=== PATIENT | female | born 1975 | race Caucasian/White ===

== ENCOUNTER 2016-10-27 13:09 | Inpatient (IN) | payer MEDICAID ==
[2016-10-27] MEDS ORDERED: Oxycodone/Acetaminophen 5/325 mg Tab PO STA (13:51)
[2016-10-27] MEDS ORDERED: HYDROmorphone 1 mg/ml ISec IVP STA (14:42)
--- NOTE | 2016-10-27 14:50 | ED PDOC ---
Arrival/HPI - General Chief Complaint: Back Pain Time Seen by Provider: 10/27/16 13:39 Historian: Patient - History of Present Illness Narrative History of Present Illness (Text): 10/27/16 15:04 41 year old female presents to the emergency department with bilateral lower back pain after lifting something yesterday. Denies fall. Denies other complaints. PMD: Dr. Stringer Time/Duration: 24 hours Symptom Onset: Sudden Symptom Course: Unchanged Activities at Onset: Light Context: Home Past Medical History - Provider Review Nursing Documentation Reviewed: Yes - Infectious Disease Hx of Infectious Diseases: None - Tetanus Immunization Tetanus Immunization: Unknown - Past Medical History Past Medical History: No Previous - Cardiac Hx Cardiac Disorders: No - Pulmonary Hx Asthma: Yes ("sometimes after smelling perfume") - Neurological Hx Neurological Disorder: Yes Hx Dizziness: Yes - HEENT Hx HEENT Disorder: No - Renal Hx Renal Disorder: No - Endocrine/Metabolic Hx Endocrine Disorders: No - Hematological/Oncological Hx Blood Disorders: No - Integumentary Hx Dermatological Disorder: No - Musculoskeletal/Rheumatological Hx Falls: No - Gastrointestinal Hx Gastrointestinal Disorders: Yes (chronic constipation) - Genitourinary/Gynecological Hx Genitourinary Disorders: No - Psychiatric Hx Psychophysiologic Disorder: No Hx Substance Use: No - Surgical History Hx Section: Yes (x2) - Anesthesia Hx Anesthesia: Yes Hx Anesthesia Reactions: No Hx Malignant Hyperthermia: No - Suicidal Assessment Feels Threatened In Home Enviroment: No Family/Social History - Physician Review Nursing Documentation Reviewed: Yes Family/Social History: Unknown Family HX Smoking Status: Never Smoked Hx Alcohol Use: No Hx Substance Use: No Hx Substance Use Treatment: No Allergies/Home Meds Allergies/Adverse Reactions: Allergies aspirin Allergy (Verified 10/27/16 13:30) SWELLING Review of Systems - Physician Review All systems were reviewed & negative as marked: Yes - Review of Systems Constitutional: absent: Fevers Musculoskeletal: Back Pain (No midline tenderness) Neurological: absent: Headache, Dizziness Physical Exam Vital Signs Reviewed: Yes Vital Signs Temp Pulse Resp BP Pulse Ox 10/27/16 18:34 66 18 122/71 99 10/27/16 16:46 68 18 124/69 99 10/27/16 15:40 70 19 126/73 99 10/27/16 15:24 75 18 123/69 98 10/27/16 13:30 98.3 F 87 16 127/70 98 Temperature: Afebrile Blood Pressure: Normal Pulse: Regular Respiratory Rate: Normal Appearance: Positive for: Well-Appearing, Non-Toxic, Comfortable Pain Distress: None Mental Status: Positive for: Alert and Oriented X 3 - Systems Exam Head: Present: Atraumatic, Normocephalic Pupils: Present: PERRL Extroacular Muscles: Present: EOMI Conjunctiva: Present: Normal Mouth: Present: Moist Mucous Membranes Neck: Present: Normal Range of Motion Respiratory/Chest: Present: Clear to Auscultation, Good Air Exchange. No: Respiratory Distress, Accessory Muscle Use Cardiovascular: Present: Regular Rate and Rhythm, Normal S1, S2. No: Murmurs Abdomen: Present: Normal Bowel Sounds. No: Tenderness, Distention, Peritoneal Signs Back: Present: Paraspinal Tenderness. No: Midline Tenderness Upper Extremity: Present: Normal Inspection. No: Cyanosis, Edema Lower Extremity: Present: Normal Inspection. No: Edema Neurological: Present: GCS=15, CN II-XII Intact, Speech Normal Skin: Present: Warm, Dry, Normal Color. No: Rashes Psychiatric: Present: Alert, Oriented x 3, Normal Insight, Normal Concentration Medical Decision Making ED Course and Treatment: Impression: A 41 year old female complains of back pain. Differential Diagnosis included but are not limited to: msk pain suspected. no clincal concern for cord compression. Plan: -- CT Spine w/o Contrast -- Labs -- Flexeril, morphine, oxycodone -- Reassess and disposition Prior Visits: Notes and results from previous visits were reviewed. Patient was last seen in the Emergency department on 06/29/16 for right ear pain and was discharged home. Progress Notes: 10/27/16 13:55 Patient's records reviewed on [facility], which show no opiate prescriptions. 10/27/16 14:25 Patient states she feels better after medications and requests discharge home. 10/27/16 12:43 Upon being discharged, patient attempted to ambulate but was unable to. pt helped to floor by family member after attempting ambulation. pt tearful in er. Additional pain medication ordered, labs imaging ordered 10/27/16 17:21 labs unremakrable. no e/o fo cauda equina/cord compression clinically. ct shows degenerative changes. pt again requesting to be d/c. attempted to again ambulate. pt unable to ambulate again, unsteady gait, discussed with dr stringer. requests hospitalist admission for intractable back pain 10/27/16 18:00 10/27/16 18:15 - Lab Interpretations Lab Results: 10/28/16 07:00 10/28/16 08:00 Lab Results 10/28/16 08:00: Sodium 140, Potassium 3.8, Chloride 105, Carbon Dioxide 27, Anion Gap 12, BUN 9, Creatinine 0.6, Est GFR ( Amer) > 60, Est GFR (Non- Af Amer) > 60, Random Glucose 85, Calcium 8.8, Total Bilirubin 0.3, AST 46 H, ALT 59 H, Alkaline Phosphatase 85, Total Protein 7.0, Albumin 3.5, Globulin 3.5 , Albumin/Globulin Ratio 1.0 L 10/28/16 07:00: WBC 6.9, RBC 3.92, Hgb 11.5 L, Hct 36.3, MCV 92.6, MCH 29.3, MCHC 31.7, RDW 13.6, Plt Count 304, MPV 9.1, Gran % 44.8 L, Lymph % (Auto) 44.7 H, [place] % (Auto) 7.5 H, Eos % (Auto) 2.6, Baso % (Auto) 0.4, Gran # 3.11, Lymph # 3.1, [place] # 0.5, Eos # 0.2, Baso # 0.03 10/27/16 15:12: Urine Color Straw, Urine Appearance Clear, Urine pH 6.0, Ur Specific [place] <= 1.005, Urine Protein Negative, Urine Glucose (UA) Negative, Urine Ketones Negative, Urine Blood Trace-intact H, Urine Nitrate Negative, Urine Bilirubin Negative, Urine Urobilinogen 0.2, Ur Leukocyte Esterase Negative , Urine RBC 0 - 2, Urine WBC Negative, Ur Epithelial Cells 0 - 2, Urine Bacteria Neg 10/27/16 15:12: Sodium 140, Potassium 4.0, Chloride 107, Carbon Dioxide 25, Anion Gap 12, BUN 8, Creatinine 0.7, Est GFR ( Amer) > 60, Est GFR (Non- Af Amer) > 60, Random Glucose 87, Calcium 9.3, Total Bilirubin 0.3, AST 38, ALT 61 H, Alkaline Phosphatase 95, Total Protein 7.4, Albumin 3.9, Globulin 3.5, Albumin/Globulin Ratio 1.1 10/27/16 15:12: PT 11.6, INR 1.07, APTT 28.9 10/27/16 15:12: WBC 7.4, RBC 3.83, Hgb 11.4 L, Hct 35.2 L, MCV 91.9, MCH 29.8, MCHC 32.4, RDW 13.5, Plt Count 302, MPV 8.9, Gran % 50.9, Lymph % (Auto) 40.1 H , [place] % (Auto) 6.5 H, Eos % (Auto) 1.7, Baso % (Auto) 0.8, Gran # 3.79, Lymph # 3.0, [place] # 0.5, Eos # 0.1, Baso # 0.06 - RAD Interpretation Radiology Orders: 10/27/16 14:42 LUMBAR SPINE W/O CONTRAST [CT] Stat 10/29/16 19:02 SPINAL CANAL LUMBAR W/O CONT [MRI] Routine - Medication Orders Current Medication Orders: Albuterol Sulfate (Albuterol 0.083% Inhal Dominique (2.5 Mg/3 Ml) Ud) 2.5 mg IH Q2H PRN PRN Reason: Shortness of Breath Cyclobenzaprine HCl (Flexeril) 10 mg PO Q8H PRN PRN Reason: Muscle spasm Last Admin: 10/29/16 10:21 Dose: 10 mg Dexamethasone (Decadron Inj) 4 mg IVP Q8 REPLACED BY [facility] Last Admin: 10/30/16 06:19 Dose: 4 mg Docusate Sodium (Colace) 100 mg PO DAILY REPLACED BY [facility] Last Admin: 10/29/16 10:23 Dose: 100 mg Famotidine (Pepcid) 20 mg PO BID REPLACED BY [facility] Last Admin: 10/29/16 10:21 Dose: 20 mg Ketorolac Tromethamine (Toradol) 15 mg IVP Q8H PRN PRN Reason: Pain, Mild (1-3) Last Admin: 10/27/16 21:37 Dose: 15 mg Re-Assess: KAYLEE Pain Assessment Document 10/27/16 22:37 B.P (Rec: 10/28/16 02:16 B.P [id number]) Pain Reassessment Is this a pain reassessment? Yes Sleep Is patient sleeping during reassessment? Yes Lidocaine (Lidoderm) 1 ea TD DAILY CAS Lorazepam (Ativan) 1 mg IVP ONCE PRN; Protocol PRN Reason: Anxiety Oxycodone HCl (Oxycodone Immediate Release Tab) 5 mg PO Q4H PRN PRN Reason: Pain, severe (8-10) Last Admin: 10/29/16 03:39 Dose: 5 mg Polyethylene Glycol (Miralax) 17 gm PO DAILY CAS Last Admin: 10/29/16 10:23 Dose: 17 gm Discontinued Medications Cyclobenzaprine HCl (Flexeril) 10 mg PO STAT STA Stop: 10/27/16 13:52 Last Admin: 10/27/16 14:12 Dose: 10 mg Docusate Sodium (Colace) Confirm Administered Dose 100 mg .ROUTE .STK-MED ONE Stop: 10/29/16 10:24 Home Med (*Refrigerator Open) Confirm Administered Dose 1 unit XX .STK-MED ONE Stop: 10/28/16 05:55 Home Med (*Refrigerator Open) Confirm Administered Dose 1 unit XX .STK-MED ONE Stop: 10/29/16 06:00 Home Med (*Refrigerator Open) Confirm Administered Dose 1 unit XX .STK-MED ONE Stop: 10/29/16 11:31 Ketorolac Tromethamine (Toradol) 30 mg IVP STAT STA Stop: 10/27/16 18:39 Morphine Sulfate (Morphine) 4 mg IVP STAT STA Stop: 10/27/16 15:09 Last Admin: 10/27/16 15:43 Dose: 4 mg Oxycodone/Acetaminophen (Percocet 5/325 Mg Tab) 1 tab PO STAT STA Stop: 10/27/16 13:52 Last Admin: 10/27/16 14:11 Dose: 1 tab Polyethylene Glycol (Miralax) Confirm Administered Dose 17 gm .ROUTE .STK-MED ONE Stop: 10/29/16 10:24 - Scribe Statement The provider has reviewed the documentation as recorded by the Siva Henderson training under Luís Palacios Provider Scribe Attestation: All medical record entries made by the Scribe were at my direction and personally dictated by me. I have reviewed the chart and agree that the record accurately reflects my personal performance of the history, physical exam, medical decision making, and the department course for this patient. I have also personally directed, reviewed, and agree with the discharge instructions and disposition. Disposition/Present on Arrival - Present on Arrival Any Indicators Present on Arrival: No History of DVT/PE: No History of Uncontrolled Diabetes: No Urinary Catheter: No History of Decub. Ulcer: No History Surgical Site Infection Following: None - Disposition Have Diagnosis and Disposition been Completed?: Yes Diagnosis: Back pain Disposition: HOSPITALIZED Disposition Time: 17:23 Patient Problems: Current Active Problems Problem Status Onset Back pain Acute Condition: STABLE
[2016-10-27] MEDS ORDERED: Morphine 4 mg/ml ISec IVP STA (15:08)
[2016-10-27 15:23] LABS: ADD MANUAL DIFF? NO
[2016-10-27 15:27] LABS: URINE BILIRUBIN NEGATIVE (NEGATIVE); URINE BLOOD TRACE-INTACT (NEGATIVE); URINE GLUCOSE (UA) NEGATIVE (NEGATIVE); URINE KETONE NEGATIVE (NEGATIVE); URINE LEUKOCYTE ESTERASE NEGATIVE Leu/uL (NEGATIVE); URINE PROTEIN NEGATIVE mg/dL (<30 mg/dL); URINE UROBILINOGEN 0.2 E.U./dL (<1 E.U./dL)
[2016-10-27 15:29] LABS: URINE APPEARANCE CLEAR (CLEAR); URINE COLOR STRAW (YELLOW)
[2016-10-27 15:35] LABS: URINE BACTERIA NEG (NEG); URINE EPITHELIAL CELLS 0 - 2 /hpf (0-5); URINE RBC 0 - 2 /hpf (0-2); URINE WBC NEGATIVE /hpf (0-6)
[2016-10-27 15:39] LABS: BASO # 0.06 K/mm3 (0.0-2.0); BASO % 0.8 % (0.0-3.0); EOS # 0.1 (0.0-0.7); EOS % 1.7 % (1.5-5.0); GRAN # 3.79 (1.4-6.5); GRAN % 50.9 % (50.0-68.0); HEMATOCRIT 35.2 % (36.0-48.0); LYMPH % 40.1 % (22.0-35.0); MEAN CELL VOLUME 91.9 fL (80.0-105.0); MEAN CORPUSCULAR HEMOGLOBIN 29.8 pg (25.0-35.0); MEAN CORPUSCULAR HGB CONC 32.4 g/dl (31.0-37.0); MEAN PLATELET VOLUME 8.9 fl (7.0-11.0); MONO # 0.5 (0.1-0.6); MONO % 6.5 % (1.0-6.0); PLATELET COUNT 302 10^3/uL (120.0-450.0); RED CELL DISTRIBUTION WIDTH 13.5 % (11.5-14.5); WHITE BLOOD COUNT 7.4 10^3/ul (4.5-11.0)
[2016-10-27 15:40] LABS: INR 1.07 (0.93-1.08); PARTIAL THROMBOPLASTIN TIME 28.9 Seconds (23.7-30.8)
[2016-10-27 15:42] LABS: ALB/GLOB RATIO 1.1 (1.1-1.8); ALKALINE PHOSPHATASE 95 U/L (38-133); ALT/SGPT 61 U/L (7-56); AST/SGOT 38 U/L (15-39); BILIRUBIN,TOTAL 0.3 mg/dL (0.2-1.3); BLOOD UREA NITROGEN 8 mg/dL (7-21); CALCIUM 9.3 mg/dL (8.4-10.5); CARBON DIOXIDE 25 mmol/L (21-33); CHLORIDE 107 mmol/L (98-107); GFR AFRICAN-AMERICAN > 60; GLUCOSE,RANDOM 87 mg/dL (70-110); SODIUM 140 mmol/L (132-148); TOTAL PROTEIN 7.4 g/dL (5.8-8.3)
--- NOTE | 2016-10-27 16:36 | CT ---
PROCEDURE: CT Lumbar Spine without contrast HISTORY: Low back pain COMPARISON: None. TECHNIQUE: Axial computed tomography images were obtained of the lumbar spine without the use of intravenous contrast. Coronal and sagittal reformatted images were created and reviewed. Radiation dose: Total exam DLP = 547.48 mGy-cm. This CT exam was performed using one or more of the following dose reduction techniques: Automated exposure control, adjustment of the mA and/or kV according to patient size, and/or use of iterative reconstruction technique. FINDINGS: VERTEBRAE: There is normal alignment of the lumbar vertebral bodies. Lumbar lordosis is maintained. Vertebral bodies are normal in height. There is no acute fracture, spondylolysis or spondylolisthesis. Bone mineralization is normal. Please note evaluation of the conus medullaris and nerve roots of cauda equina is limited on noncontrast CT examination. The spinal canal is grossly patent. The paraspinous soft tissues are normal. Imaged portion of the retroperitoneum is within normal limits. The urinary bladder is over distended. DISCS/SPINAL CANAL/NEURAL FORAMINA: L1-2: No large disc herniation, neural foraminal or spinal canal stenosis. L2-3: No large disc herniation, neural foraminal or spinal canal stenosis. L3-4: No large disc herniation, neural foraminal or spinal canal stenosis. L4-5: Mild posterior disc bulge and mild bilateral facet arthropathy. No neural foraminal or spinal canal stenosis. L5-S1: Broad-based central disc protrusion abuts the traversing S1 nerve roots and in conjunction with mild ligamentum flavum infolding results in mild spinal canal stenosis. Mild bilateral facet arthropathy contributes to mild neural foraminal stenosis. PARASPINAL SOFT TISSUES: Unremarkable. OTHER FINDINGS: None. IMPRESSION: 1. No acute fracture, spondylolysis or spondylolisthesis. 2. Mild multilevel degenerative disc disease at L5-S1 with a broad-based central disc protrusion which abuts the traversing S1 nerve roots, also noted is mild spinal canal stenosis and mild bilateral neural foraminal stenosis.
[2016-10-27] MEDS ORDERED: Albuterol 0.083% Inhal Sol (2.5 mg/3 mL) UD IH PRN (18:39)
--- NOTE | 2016-10-27 19:07 | CP.PCM.HP ---
History of Present Illness - History of Present Illness History of Present Illness: CC: Back pain and inability to walk This patient is a 41yo F w/ no significant PMHx who is coming to the hospital because of a 1d history of back pain after she lifted a heavy object, felt a pop in her back, and immediately felt pain shooting down her b/l legs to the knees. The pain is worse on her right side, to her knee. She has no pain going down to the feet. She has no bladder/bowel incontinence. Patient is able to ambulate if forced to, but it is extremely painful for her. She denies any other symptoms. Denies fevers/chills, HENRIQUEZ, CP, SOB, abdominal pain, N/V/D, dysuria/freq/urg, or lower extremity swelling, depression/anxiety. PMhx: None Meds: None regularly; motrin for pain Surgical History: denies FamHx: Denies Allergies: Aspirin-->eyelid swelling Social: Lives at home with , independent normally in all IADL and ADL with no gait instability, denies EtOH, illicit drugs/smoking ever Present on Admission - Present on Admission Any Indicators Present on Admission: No History of DVT/PE: No History of Uncontrolled Diabetes: No Urinary Catheter: No Decubitus Ulcer Present: No Past Patient History - Infectious Disease Hx of Infectious Diseases: None - Tetanus Immunizations Tetanus Immunization: Unknown - Past Social History Smoking Status: Never Smoked - CARDIAC Hx Cardiac Disorders: No - PULMONARY Hx Asthma: Yes ("sometimes after smelling perfume") - NEUROLOGICAL Hx Neurological Disorder: Yes Hx Dizziness: Yes - HEENT Hx HEENT Problems: No - RENAL Hx Chronic Kidney Disease: No - ENDOCRINE/METABOLIC Hx Endocrine Disorders: No - HEMATOLOGICAL/ONCOLOGICAL Hx Blood Disorders: No - INTEGUMENTARY Hx Dermatological Problems: No - MUSCULOSKELETAL/RHEUMATOLOGICAL Hx Falls: No - GASTROINTESTINAL Hx Gastrointestinal Disorders: Yes (chronic constipation) - GENITOURINARY/GYNECOLOGICAL Hx Genitourinary Disorders: No - PSYCHIATRIC Hx Psychophysiologic Disorder: No Hx Substance Use: No - SURGICAL HISTORY Hx Section: Yes (x2) - ANESTHESIA Hx Anesthesia: Yes Hx Anesthesia Reactions: No Hx Malignant Hyperthermia: No Meds Home Medications: Home Medication List Medication Instructions Recorded Confirmed Type Cyclobenzaprine [Cyclobenzaprine 10 mg PO TID PRN #21 tab 06/21/17 Rx HCl] oxyCODONE/Acetaminophen [Percocet 1 ea PO Q8 PRN #10 tab 10/27/16 Rx 5/325 mg Tab] Allergies/Adverse Reactions: Allergies Allergy/AdvReac Type Severity Reaction Status Date / Time aspirin Allergy SWELLING Verified 10/27/16 13:30 Physical Exam - Constitutional Appears: Well, Non-toxic - Head Exam Head Exam: ATRAUMATIC - Eye Exam Eye Exam: EOMI Pupil Exam: PERRL - ENT Exam ENT Exam: Mucous Membranes Moist - Neck Exam Neck exam: Positive for: Full Rom. Negative for: Lymphadenopathy - Respiratory Exam Respiratory Exam: Clear to Auscultation Bilateral, NORMAL BREATHING PATTERN. absent: Rales, Rhonchi, Wheezes - Cardiovascular Exam Cardiovascular Exam: REGULAR RHYTHM - GI/Abdominal Exam GI & Abdominal Exam: Normal Bowel Sounds, Soft. absent: Tenderness - Extremities Exam Extremities exam: Negative for: calf tenderness Additional comments: + straight leg test on the right, intact sensation bilaterally, intact pulses b/ l, patient unable to stand on exam due to pain, can wiggle toes, intact reflexes b/l - Back Exam Back exam: NORMAL INSPECTION. absent: CVA tenderness (L), CVA tenderness (R) - Neurological Exam Neurological exam: Alert, CN II-XII Intact, Oriented x3, Reflexes Normal - Psychiatric Exam Psychiatric exam: Normal Affect - Skin Skin Exam: Warm Results - Vital Signs Recent Vital Signs: Last Vital Signs Temp 98.3 F 10/27/16 13:30 Pulse 66 10/27/16 18:34 Resp 18 10/27/16 18:34 BP 122/71 10/27/16 18:34 Pulse Ox 99 10/27/16 18:34 - Labs Result Diagrams: 10/27/16 15:12 10/27/16 15:12 Assessment & Plan - Assessment and Plan (Free Text) Assessment: 41yo F admitted for intractable back pain Intractable back pain -CT scan showed disc herniation at L5/S1 with spinal stenosis and foraminal stenosis with advanced disc disease present -Valium, Cyclobenzaprine, Tramadol, Toradol for pain and muscle spasm control; patient is comfortably sitting in bed at this point -MRI lumbar spine for further evaluation; ativan before MRI because patient has claustrophobia Prophlaxis -SCD -OOB encouraged; PT evaluation -Heart Healthy Diet -Pepcid Case Discussed with Dr. Clark Ruiz PGY1 Night Float Decision To Admit - Pt Status Changed To: Hospital Disposition Of: Observation - . Bed Request Type: Med/Surg Admitting Physician: Scott Rodas
[2016-10-27 20:52] VITALS: BMI 27.1
[2016-10-27] MEDS: oxyCODONE 5 mg Immediate Release Tab PO PRN (21:37)
[2016-10-28 07:17] LABS: ADD MANUAL DIFF? NO
[2016-10-28 07:25] LABS: BASO # 0.03 K/mm3 (0.0-2.0); BASO % 0.4 % (0.0-3.0); EOS # 0.2 (0.0-0.7); EOS % 2.6 % (1.5-5.0); GRAN # 3.11 (1.4-6.5); GRAN % 44.8 % (50.0-68.0); HEMATOCRIT 36.3 % (36.0-48.0); LYMPH # 3.1 (1.2-3.4); LYMPH % 44.7 % (22.0-35.0); MEAN CELL VOLUME 92.6 fL (80.0-105.0); MEAN CORPUSCULAR HEMOGLOBIN 29.3 pg (25.0-35.0); MEAN CORPUSCULAR HGB CONC 31.7 g/dl (31.0-37.0); MEAN PLATELET VOLUME 9.1 fl (7.0-11.0); MONO # 0.5 (0.1-0.6); MONO % 7.5 % (1.0-6.0); PLATELET COUNT 304 10^3/uL (120.0-450.0); RED CELL DISTRIBUTION WIDTH 13.6 % (11.5-14.5); WHITE BLOOD COUNT 6.9 10^3/ul (4.5-11.0)
[2016-10-28 08:29] LABS: ALKALINE PHOSPHATASE 85 U/L (38-133); ALT/SGPT 59 U/L (7-56); AST/SGOT 46 U/L (15-39); BILIRUBIN,TOTAL 0.3 mg/dL (0.2-1.3); BLOOD UREA NITROGEN 9 mg/dL (7-21); CALCIUM 8.8 mg/dL (8.4-10.5); CARBON DIOXIDE 27 mmol/L (21-33); CHLORIDE 105 mmol/L (98-107); GFR AFRICAN-AMERICAN > 60; GLUCOSE,RANDOM 85 mg/dL (70-110); POTASSIUM 3.8 mmol/L (3.6-5.0); SODIUM 140 mmol/L (132-148)
[2016-10-28] MEDS: oxyCODONE 5 mg Immediate Release Tab PO PRN ×2 (11:29→22:10)
--- NOTE | 2016-10-28 12:44 | CP.PCM.PN ---
<Bao Nguyen - Last Filed: 10/28/16 12:49> Subjective - Date & Time of Evaluation Date of Evaluation: 10/28/16 Time of Evaluation: 07:00 - Subjective Subjective: Pt was seen and examined at bedside. Pt has complaints of back and leg pains most prominent on the right side. Pt states that it is difficult for her to ambulate due to apprehension of pain. Pt has control of bowel and bladder and last had a bm yesterday. Pt is tolerating diet. Pt denied fever, chills, sob, chest pains, abdominal pains, n/v/d/c or urinary symptoms. Objective - Vital Signs/Intake and Output Vital Signs (last 24 hours): Temp Pulse Resp BP Pulse Ox 97.8 F 65 20 97/61 L 98 10/28/16 08:29 10/28/16 08:29 10/28/16 08:29 10/28/16 08:29 10/28/16 08:29 Intake and Output: 10/28/16 10/28/16 06:59 18:59 Intake Total 600 Balance 600 - Medications Medications: Current Medications Albuterol Sulfate (Albuterol 0.083% Inhal Dominique (2.5 Mg/3 Ml) Ud) 2.5 mg IH Q2H PRN PRN Reason: Shortness of Breath Cyclobenzaprine HCl (Flexeril) 10 mg PO Q8H PRN PRN Reason: Muscle spasm Last Admin: 10/28/16 11:29 Dose: 10 mg Dexamethasone (Decadron Inj) 4 mg IVP Q8 CAS Diazepam (Valium) 5 mg PO TID PRN; Protocol PRN Reason: Muscle spasm Famotidine (Pepcid) 20 mg PO BID CAS Last Admin: 10/28/16 11:29 Dose: 20 mg Ketorolac Tromethamine (Toradol) 15 mg IVP Q8H PRN PRN Reason: Pain, Mild (1-3) Last Admin: 10/27/16 21:37 Dose: 15 mg Oxycodone HCl (Oxycodone Immediate Release Tab) 5 mg PO Q4H PRN PRN Reason: Pain, severe (8-10) Last Admin: 10/28/16 11:29 Dose: 5 mg - Labs Labs: 10/28/16 07:00 10/28/16 08:00 PT 11.6 Seconds (9.9-11.8) 10/27/16 15:12 INR 1.07 (0.93-1.08) 10/27/16 15:12 APTT 28.9 Seconds (23.7-30.8) 10/27/16 15:12 - Constitutional Appears: No Acute Distress - Head Exam Head Exam: ATRAUMATIC, NORMAL INSPECTION, NORMOCEPHALIC - Eye Exam Eye Exam: EOMI, Normal appearance, PERRL Pupil Exam: NORMAL ACCOMODATION, PERRL - ENT Exam ENT Exam: Mucous Membranes Moist, Normal Exam - Neck Exam Neck Exam: Full ROM, Normal Inspection. absent: Lymphadenopathy - Respiratory Exam Respiratory Exam: Clear to Ausculation Bilateral, NORMAL BREATHING PATTERN - Cardiovascular Exam Cardiovascular Exam: REGULAR RHYTHM, +S1, +S2. absent: Murmur - GI/Abdominal Exam GI & Abdominal Exam: Soft, Normal Bowel Sounds. absent: Tenderness - Extremities Exam Extremities Exam: Full ROM, Normal Capillary Refill, Normal Inspection. absent : Joint Swelling, Pedal Edema - Back Exam Back Exam: paraspinal tenderness - Neurological Exam Neurological Exam: Alert, Awake, CN II-XII Intact, Oriented x3 Neuro motor strength exam: Left Upper Extremity: 4, Right Upper Extremity: 4, Left Lower Extremity: 4, Right Lower Extremity: 3 - Psychiatric Exam Psychiatric exam: Anxious - Skin Skin Exam: Dry, Intact, Normal Color, Warm Assessment and Plan - Assessment and Plan (Free Text) Assessment: 41 F with PMHx of asthma admitted for intractable back pain secondary to L5-S1 Disc herniation Intractable back pain -CT scan showed disc herniation at L5/S1 with spinal stenosis and foraminal stenosis with advanced disc disease present - toradol, Cyclobenzaprine, oxycodone for pain and muscle spasm control; patient is comfortably sitting in bed at this point -MRI lumbar spine for further evaluation; - ativan before MRI because patient has claustrophobia - PT eval and treat - Decadron 4q8 IV Asthma - stable - duonebs prn Prophlaxis -SCD -OOB encouraged; PT evaluation -Heart Healthy Diet -Pepcid Seen reviewed and discussed with Dr. Epstein <Austen Epstein - Last Filed: 10/28/16 15:54> Objective - Vital Signs/Intake and Output Vital Signs (last 24 hours): Temp Pulse Resp BP Pulse Ox 97.8 F 65 20 97/61 L 98 10/28/16 08:29 10/28/16 08:29 10/28/16 08:29 10/28/16 08:29 10/28/16 08:29 Intake and Output: 10/28/16 10/28/16 06:59 18:59 Intake Total 600 640 Output Total 3 Balance 600 637 - Medications Medications: Current Medications Albuterol Sulfate (Albuterol 0.083% Inhal Dominique (2.5 Mg/3 Ml) Ud) 2.5 mg IH Q2H PRN PRN Reason: Shortness of Breath Cyclobenzaprine HCl (Flexeril) 10 mg PO Q8H PRN PRN Reason: Muscle spasm Last Admin: 10/28/16 11:29 Dose: 10 mg Dexamethasone (Decadron Inj) 4 mg IVP Q8 CAS Last Admin: 10/28/16 15:10 Dose: 4 mg Famotidine (Pepcid) 20 mg PO BID CAS Last Admin: 10/28/16 11:29 Dose: 20 mg Ketorolac Tromethamine (Toradol) 15 mg IVP Q8H PRN PRN Reason: Pain, Mild (1-3) Last Admin: 10/27/16 21:37 Dose: 15 mg Lorazepam (Ativan) 1 mg IVP ONCE PRN; Protocol PRN Reason: Anxiety Oxycodone HCl (Oxycodone Immediate Release Tab) 5 mg PO Q4H PRN PRN Reason: Pain, severe (8-10) Last Admin: 10/28/16 11:29 Dose: 5 mg - Labs Labs: 10/28/16 07:00 10/28/16 08:00 PT 11.6 Seconds (9.9-11.8) 10/27/16 15:12 INR 1.07 (0.93-1.08) 10/27/16 15:12 APTT 28.9 Seconds (23.7-30.8) 10/27/16 15:12 Attending/Attestation - Attestation I have personally seen and examined this patient.: Yes I have fully participated in the care of the patient.: Yes I have reviewed all pertinent clinical information, including history, physical exam and plan: Yes Notes (Text): 10/28/16 15:49 attending note; Patient seen and examined with resident. patient is a 41-year-old female with a history of asthma is admitted with significant back pain after lifting heavy object. CT showed L5-S1 disc herniation. Started on Steroids, IV Toradol and Flexeril. PT evaluation requested. Follow up closely. Possible discharge tomorrow if clinically improves. follow-up with PMD Dr. stringer upon discharge. 10/28/16 15:54
[2016-10-28] MEDS: Dexamethasone 4 mg/1 ml IVP SCH ×2 (15:10→22:09)
[2016-10-29] MEDS: oxyCODONE 5 mg Immediate Release Tab PO PRN (03:39)
[2016-10-29] MEDS: Dexamethasone 4 mg/1 ml IVP SCH ×3 (06:43→22:47)
[2016-10-29 07:16] LABS: ADD MANUAL DIFF? NO
[2016-10-29 07:22] LABS: BASO # 0.01 K/mm3 (0.0-2.0); BASO % 0.1 % (0.0-3.0); GRAN # 10.67 (1.4-6.5); GRAN % 88.4 % (50.0-68.0); HEMATOCRIT 38.7 % (36.0-48.0); LYMPH # 1.2 (1.2-3.4); LYMPH % 9.9 % (22.0-35.0); MEAN CELL VOLUME 90.4 fL (80.0-105.0); MEAN CORPUSCULAR HEMOGLOBIN 29.7 pg (25.0-35.0); MEAN CORPUSCULAR HGB CONC 32.8 g/dl (31.0-37.0); MEAN PLATELET VOLUME 8.8 fl (7.0-11.0); MONO # 0.2 (0.1-0.6); MONO % 1.6 % (1.0-6.0); PLATELET COUNT 337 10^3/uL (120.0-450.0); RED CELL DISTRIBUTION WIDTH 13.2 % (11.5-14.5); WHITE BLOOD COUNT 12.1 10^3/ul (4.5-11.0)
[2016-10-29 08:22] LABS: ALB/GLOB RATIO 1.1 (1.1-1.8); ALKALINE PHOSPHATASE 94 U/L (38-133); ALT/SGPT 81 U/L (7-56); AST/SGOT 54 U/L (15-39); BILIRUBIN,TOTAL 0.2 mg/dL (0.2-1.3); BLOOD UREA NITROGEN 13 mg/dL (7-21); CALCIUM 9.6 mg/dL (8.4-10.5); CARBON DIOXIDE 25 mmol/L (21-33); CHLORIDE 104 mmol/L (98-107); GFR AFRICAN-AMERICAN > 60; GLUCOSE,RANDOM 128 mg/dL (70-110); POTASSIUM 4.3 mmol/L (3.6-5.0); SODIUM 139 mmol/L (132-148); TOTAL PROTEIN 7.8 g/dL (5.8-8.3)
[2016-10-29] MEDS: POLYETHYLENE GLYCOL 3350 17 GM/Dose PACKET PO SCH (10:23)
[2016-10-29] MEDS ORDERED: POLYETHYLENE GLYCOL 3350 17 GM/Dose PACKET ONE (10:23)
--- NOTE | 2016-10-29 12:29 | CP.PCM.PN ---
<Bao Nguyen - Last Filed: 10/29/16 12:34> Subjective - Date & Time of Evaluation Date of Evaluation: 10/29/16 Time of Evaluation: 07:00 - Subjective Subjective: Pt was seen and examined at bedside. Pt states that her pain has improved since yesterday and is willing to undergo physical therapy. Pt is tolerating diet and moving her bladder regularly. Pt has not had a bm, hoever does not feel any abdominal discomfort. Pt denied fever, chills sob, chest pains, abdominal pain, n/v/d/c or urinary symptoms. Objective - Vital Signs/Intake and Output Vital Signs (last 24 hours): Temp Pulse Resp BP Pulse Ox 97.9 F 73 20 96/61 L 94 L 10/29/16 08:29 10/29/16 08:29 10/29/16 08:29 10/29/16 08:29 10/29/16 08:29 Intake and Output: 10/29/16 10/29/16 06:59 18:59 Intake Total 720 260 Balance 720 260 - Medications Medications: Current Medications Albuterol Sulfate (Albuterol 0.083% Inhal Dominique (2.5 Mg/3 Ml) Ud) 2.5 mg IH Q2H PRN PRN Reason: Shortness of Breath Cyclobenzaprine HCl (Flexeril) 10 mg PO Q8H PRN PRN Reason: Muscle spasm Last Admin: 10/29/16 10:21 Dose: 10 mg Dexamethasone (Decadron Inj) 4 mg IVP Q8 [facility] Last Admin: 10/29/16 06:43 Dose: 4 mg Docusate Sodium (Colace) 100 mg PO DAILY [facility] Last Admin: 10/29/16 10:23 Dose: 100 mg Famotidine (Pepcid) 20 mg PO BID [facility] Last Admin: 10/29/16 10:21 Dose: 20 mg Ketorolac Tromethamine (Toradol) 15 mg IVP Q8H PRN PRN Reason: Pain, Mild (1-3) Last Admin: 10/27/16 21:37 Dose: 15 mg Lorazepam (Ativan) 1 mg IVP ONCE PRN; Protocol PRN Reason: Anxiety Oxycodone HCl (Oxycodone Immediate Release Tab) 5 mg PO Q4H PRN PRN Reason: Pain, severe (8-10) Last Admin: 10/29/16 03:39 Dose: 5 mg Polyethylene Glycol (Miralax) 17 gm PO DAILY [facility] Last Admin: 10/29/16 10:23 Dose: 17 gm - Labs Labs: 10/29/16 06:00 10/29/16 08:00 PT 11.6 Seconds (9.9-11.8) 10/27/16 15:12 INR 1.07 (0.93-1.08) 10/27/16 15:12 APTT 28.9 Seconds (23.7-30.8) 10/27/16 15:12 - Constitutional Appears: No Acute Distress - Head Exam Head Exam: ATRAUMATIC, NORMAL INSPECTION, NORMOCEPHALIC - Eye Exam Eye Exam: EOMI, Normal appearance, PERRL Pupil Exam: NORMAL ACCOMODATION, PERRL - ENT Exam ENT Exam: Mucous Membranes Moist, Normal Exam - Neck Exam Neck Exam: Full ROM, Normal Inspection. absent: Lymphadenopathy - Respiratory Exam Respiratory Exam: Clear to Ausculation Bilateral, NORMAL BREATHING PATTERN - Cardiovascular Exam Cardiovascular Exam: REGULAR RHYTHM, +S1, +S2. absent: Murmur - GI/Abdominal Exam GI & Abdominal Exam: Soft, Normal Bowel Sounds. absent: Tenderness - Extremities Exam Extremities Exam: Full ROM, Normal Capillary Refill, Normal Inspection. absent : Joint Swelling, Pedal Edema - Back Exam Back Exam: paraspinal tenderness - Neurological Exam Neurological Exam: Alert, Awake, CN II-XII Intact, Normal Gait, Oriented x3 - Psychiatric Exam Psychiatric exam: Normal Affect, Normal Mood - Skin Skin Exam: Dry, Intact, Normal Color, Warm Assessment and Plan - Assessment and Plan (Free Text) Assessment: 41 F with PMHx of asthma admitted for intractable back pain secondary to L5-S1 Disc herniation Intractable back pain -CT scan showed disc herniation at L5/S1 with spinal stenosis and foraminal stenosis with advanced disc disease present - toradol, Cyclobenzaprine, oxycodone for pain and muscle spasm control; patient is comfortably sitting in bed at this point - MRI lumbar spine for further evaluation; to be done this am - ativan before MRI because patient has claustrophobia - PT eval and treat - Decadron 4q8 IV - Consult for Epidural, Dr. Maddi mena, will reach out to Anesthesiology Dr. Meraz. Asthma - stable - duonebs prn Prophlaxis -SCD -OOB encouraged; PT evaluation -Heart Healthy Diet -Pepcid Seen reviewed and discussed with attending <Wei Ricardo MD - Last Filed: 10/29/16 13:06> Objective - Vital Signs/Intake and Output Vital Signs (last 24 hours): Temp Pulse Resp BP Pulse Ox 97.9 F 73 20 96/61 L 94 L 10/29/16 08:29 10/29/16 08:29 10/29/16 08:29 10/29/16 08:29 10/29/16 08:29 Intake and Output: 10/29/16 10/29/16 06:59 18:59 Intake Total 720 260 Balance 720 260 - Medications Medications: Current Medications Albuterol Sulfate (Albuterol 0.083% Inhal Dominique (2.5 Mg/3 Ml) Ud) 2.5 mg IH Q2H PRN PRN Reason: Shortness of Breath Cyclobenzaprine HCl (Flexeril) 10 mg PO Q8H PRN PRN Reason: Muscle spasm Last Admin: 10/29/16 10:21 Dose: 10 mg Dexamethasone (Decadron Inj) 4 mg IVP Q8 [facility] Last Admin: 10/29/16 06:43 Dose: 4 mg Docusate Sodium (Colace) 100 mg PO DAILY [facility] Last Admin: 10/29/16 10:23 Dose: 100 mg Famotidine (Pepcid) 20 mg PO BID [facility] Last Admin: 10/29/16 10:21 Dose: 20 mg Ketorolac Tromethamine (Toradol) 15 mg IVP Q8H PRN PRN Reason: Pain, Mild (1-3) Last Admin: 10/27/16 21:37 Dose: 15 mg Lorazepam (Ativan) 1 mg IVP ONCE PRN; Protocol PRN Reason: Anxiety Oxycodone HCl (Oxycodone Immediate Release Tab) 5 mg PO Q4H PRN PRN Reason: Pain, severe (8-10) Last Admin: 10/29/16 03:39 Dose: 5 mg Polyethylene Glycol (Miralax) 17 gm PO DAILY [facility] Last Admin: 10/29/16 10:23 Dose: 17 gm - Labs Labs: 10/29/16 06:00 10/29/16 08:00 PT 11.6 Seconds (9.9-11.8) 10/27/16 15:12 INR 1.07 (0.93-1.08) 10/27/16 15:12 APTT 28.9 Seconds (23.7-30.8) 10/27/16 15:12 Attending/Attestation - Attestation I have personally seen and examined this patient.: Yes I have fully participated in the care of the patient.: Yes I have reviewed all pertinent clinical information, including history, physical exam and plan: Yes Notes (Text): 10/29/16 13:02 Patient was seen and examined with veterinary medical officer. 41 year-old female with a history of asthma is admitted with significant back pain after lifting heavy object.CT scan showed L5-S1 disc herniation. Started on Steroids, IV Toradol and Flexeril, still having lot of pain, especially with walking,or change of positionMRI is pending. Anesthesia is consulted for epidural.Steroid can be discontinued after epidural Management plan was discussed in detail with patient.Education was provided
--- NOTE | 2016-10-29 14:43 | MRI ---
PROCEDURE: MR LUMBAR SPINE WITHOUT CONTRAST HISTORY: back pain; is there just a lumbar MRI? COMPARISON: CT lumbar spine from 10/27/2016 TECHNIQUE: Multiecho multiplanar sequences were performed through the lumbar spine without the use of intravenous contrast. FINDINGS: There is normal alignment of the lumbar vertebral bodies. Lumbar lordosis is maintained. Vertebral bodies are normal in height. There is no acute fracture, spondylolysis or spondylolisthesis. Bone marrow signal is within normal limits. The conus medullaris terminates at a normal level and the nerve roots of cauda equina are normal. T12-L1: No disc herniation, spinal canal stenosis or neural foraminal narrowing. L1-2: No disc herniation, spinal canal stenosis or neural foraminal narrowing. L2-3: No disc herniation, spinal canal stenosis or neural foraminal narrowing. L3-4: No disc herniation, spinal canal stenosis or neural foraminal narrowing. L4-5: Mild posterior disc bulge without neural foraminal or spinal canal stenosis. L5-S1: Broad-based central disc protrusion abuts the traversing S1 nerve roots without central spinal canal stenosis. Mild bilateral facet arthropathy without neural foraminal stenosis. OTHER FINDINGS: The paraspinous soft tissues are normal. Imaged portion of the retroperitoneum is within normal limits. IMPRESSION: Mild degenerative disc disease at L5-S1 with a broad-based central disc protrusion which abuts the traversing S1 nerve roots without central spinal canal stenosis. No neural foraminal stenosis. No evidence of spondylolysis, spondylolisthesis or acute fracture.
[2016-10-29] MEDS ORDERED: Lidocaine 5% Patch TD SCH (16:15)
[2016-10-30] MEDS: Dexamethasone 4 mg/1 ml IVP SCH (06:19)
[2016-10-30 07:25] LABS: ADD MANUAL DIFF? NO
[2016-10-30 07:29] LABS: BASO # 0.01 K/mm3 (0.0-2.0); BASO % 0.1 % (0.0-3.0); GRAN # 17.62 (1.4-6.5); GRAN % 88.9 % (50.0-68.0); HEMATOCRIT 38.6 % (36.0-48.0); LYMPH # 1.8 (1.2-3.4); LYMPH % 8.8 % (22.0-35.0); MEAN CELL VOLUME 91.3 fL (80.0-105.0); MEAN CORPUSCULAR HEMOGLOBIN 29.8 pg (25.0-35.0); MEAN CORPUSCULAR HGB CONC 32.6 g/dl (31.0-37.0); MEAN PLATELET VOLUME 9.1 fl (7.0-11.0); MONO # 0.4 (0.1-0.6); MONO % 2.2 % (1.0-6.0); PLATELET COUNT 362 10^3/uL (120.0-450.0); RED CELL DISTRIBUTION WIDTH 13.7 % (11.5-14.5); WHITE BLOOD COUNT 19.8 10^3/ul (4.5-11.0)
[2016-10-30 07:44] LABS: ALKALINE PHOSPHATASE 80 U/L (38-133); ALT/SGPT 67 U/L (7-56); AST/SGOT 40 U/L (15-39); BILIRUBIN,TOTAL 0.4 mg/dL (0.2-1.3); BLOOD UREA NITROGEN 15 mg/dL (7-21); CALCIUM 9.3 mg/dL (8.4-10.5); CARBON DIOXIDE 24 mmol/L (21-33); CHLORIDE 104 mmol/L (98-107); GFR AFRICAN-AMERICAN > 60; GLUCOSE,RANDOM 150 mg/dL (70-110); SODIUM 138 mmol/L (132-148); TOTAL PROTEIN 7.9 g/dL (5.8-8.3)
[2016-10-30 08:00] LABS: POTASSIUM 4.5 mmol/L (3.6-5.0)
[2016-10-30 08:56] VITALS: BP 108/74; PULSE 91; RESP 18; TEMP 98.2; O2SAT 94
[2016-10-30] MEDS ORDERED: Magnesium Citrate Oral SOL (300 ml) PO STA (09:17)
[2016-10-30] MEDS: POLYETHYLENE GLYCOL 3350 17 GM/Dose PACKET PO SCH (10:03)
--- NOTE | 2016-10-30 11:01 | CP.PCM.DIS ---
<Bao Nguyen - Last Filed: 10/31/16 14:02> Provider - Provider Date of Admission: 10/28/16 15:53 Attending physician: Austen Epstein MD Primary care physician: Boy Stringer MD Consults: Pain - Dr. Linda Time Spent in preparation of Discharge (in minutes): 45 Hospital Course - Lab Results Lab Results: Most Recent Lab Values WBC 19.8 10^3/ul (4.5-11.0) H D 10/30/16 07:20 RBC 4.23 10^6/uL (3.5-6.1) 10/30/16 07:20 Hgb 12.6 gm/dL (12.0-16.0) 10/30/16 07:20 Hct 38.6 % (36.0-48.0) 10/30/16 07:20 MCV 91.3 fL (80.0-105.0) 10/30/16 07:20 MCH 29.8 pg (25.0-35.0) 10/30/16 07:20 MCHC 32.6 g/dl (31.0-37.0) 10/30/16 07:20 RDW 13.7 % (11.5-14.5) 10/30/16 07:20 Plt Count 362 10^3/uL (120.0-450.0) 10/30/16 07:20 MPV 9.1 fl (7.0-11.0) 10/30/16 07:20 Gran % 88.9 % (50.0-68.0) H 10/30/16 07:20 Lymph % (Auto) 8.8 % (22.0-35.0) L 10/30/16 07:20 Carlton % (Auto) 2.2 % (1.0-6.0) 10/30/16 07:20 Eos % (Auto) 0.0 % (1.5-5.0) L 10/30/16 07:20 Baso % (Auto) 0.1 % (0.0-3.0) 10/30/16 07:20 Gran # 17.62 (1.4-6.5) H 10/30/16 07:20 Lymph # 1.8 (1.2-3.4) 10/30/16 07:20 Carlton # 0.4 (0.1-0.6) 10/30/16 07:20 Eos # 0.0 (0.0-0.7) 10/30/16 07:20 Baso # 0.01 K/mm3 (0.0-2.0) 10/30/16 07:20 PT 11.6 Seconds (9.9-11.8) 10/27/16 15:12 INR 1.07 (0.93-1.08) 10/27/16 15:12 APTT 28.9 Seconds (23.7-30.8) 10/27/16 15:12 Sodium 138 mmol/L (132-148) 10/30/16 07:20 Potassium 4.5 mmol/L (3.6-5.0) 10/30/16 07:20 Chloride 104 mmol/L (98-107) 10/30/16 07:20 Carbon Dioxide 24 mmol/L (21-33) 10/30/16 07:20 Anion Gap 15 (10-20) 10/30/16 07:20 BUN 15 mg/dL (7-21) 10/30/16 07:20 Creatinine 0.5 mg/dL (0.5-1.4) 10/30/16 07:20 Est GFR ( Amer) > 60 10/30/16 07:20 Est GFR (Non-Af Amer) > 60 10/30/16 07:20 Random Glucose 150 mg/dL (70-110) H 10/30/16 07:20 Calcium 9.3 mg/dL (8.4-10.5) 10/30/16 07:20 Total Bilirubin 0.4 mg/dL (0.2-1.3) 10/30/16 07:20 AST 40 U/L (15-39) H 10/30/16 07:20 ALT 67 U/L (7-56) H 10/30/16 07:20 Alkaline Phosphatase 80 U/L (38-133) 10/30/16 07:20 Total Protein 7.9 g/dL (5.8-8.3) 10/30/16 07:20 Albumin 3.9 g/dL (3.0-4.8) 10/30/16 07:20 Globulin 3.9 gm/dL 10/30/16 07:20 Albumin/Globulin Ratio 1.0 (1.1-1.8) L 10/30/16 07:20 Urine Color Straw (YELLOW) 10/27/16 15:12 Urine Appearance Clear (CLEAR) 10/27/16 15:12 Urine pH 6.0 (4.7-8.0) 10/27/16 15:12 Ur Specific [place] <= 1.005 (1.005-1.035) 10/27/16 15:12 Urine Protein Negative mg/dL (<30 mg/dL) 10/27/16 15:12 Urine Glucose (UA) Negative mg/dL (NEGATIVE) 10/27/16 15:12 Urine Ketones Negative mg/dL (NEGATIVE) 10/27/16 15:12 Urine Blood Trace-intact (NEGATIVE) H 10/27/16 15:12 Urine Nitrate Negative (NEGATIVE) 10/27/16 15:12 Urine Bilirubin Negative (NEGATIVE) 10/27/16 15:12 Urine Urobilinogen 0.2 E.U./dL (<1 E.U./dL) 10/27/16 15:12 Ur Leukocyte Esterase Negative Allan/uL (NEGATIVE) 10/27/16 15:12 Urine RBC 0 - 2 /hpf (0-2) 10/27/16 15:12 Urine WBC Negative /hpf (0-6) 10/27/16 15:12 Ur Epithelial Cells 0 - 2 /hpf (0-5) 10/27/16 15:12 Urine Bacteria Neg (NEG) 10/27/16 15:12 - Hospital Course Hospital Course: 41yo F w/ no significant PMHx who is coming to the hospital because of a 1d history of back pain after she lifted a heavy object, felt a pop in her back, and immediately felt pain shooting down her b/l legs to the knees. The pain is worse on her right side, to her knee. She has no pain going down to the feet. She has no bladder/bowel incontinence. Pt was admitted for intractable back pain secondary to disc herniation demonstrated on CT. CT scan showed disc herniation at L5/S1 with spinal stenosis and foraminal stenosis with advanced disc disease present. Pt was started on a analgesic regimen with physical therapy treatment. MRI of lumbar spine was also performed for further evaluation , demonstrated mild degenerative disc dz at L5-S1 with a braod based central disc protrusion abutting transversing S1 nerve roots. No central spinal canal stenosis and no neural oraminal stenosis, No acute fx. Pt was started on decadron to reduce inflammation, to which the patient tolerated well and provided pain relief. Pt was stable to dc with fu with PMD Dr. Stringer, pain management Dr. Linda or pt's choice (Dr. Rouse in past). Pt is to fu with physical therapy as well. Discharge Exam - Head Exam Head Exam: ATRAUMATIC, NORMAL INSPECTION, NORMOCEPHALIC - Eye Exam Eye Exam: EOMI, Normal appearance, PERRL Pupil Exam: NORMAL ACCOMODATION, PERRL - ENT Exam ENT Exam: Mucous Membranes Moist - Respiratory Exam Respiratory Exam: Clear to PA & Lateral, NORMAL BREATHING PATTERN, UNREMARKABLE - Cardiovascular Exam Cardiovascular Exam: RRR, +S1, +S2 - GI/Abdominal Exam GI & Abdominal Exam: Normal Bowel Sounds - Extremities Exam Extremities exam: normal inspection - Back Exam Back exam: paraspinal tenderness - Neurological Exam Neurological exam: Alert, CN II-XII Intact, Normal Gait, Oriented x3, Reflexes Normal - Psychiatric Exam Psychiatric exam: Normal Affect, Normal Mood - Skin Skin Exam: Dry, Intact, Normal Color, Warm Discharge Plan - Discharge Medications Prescriptions: Cyclobenzaprine [Flexeril] 10 mg PO Q8H PRN #30 tab PRN Reason: Muscle Spasm Docusate [Colace] 100 mg PO DAILY #30 cap Ibuprofen [Motrin] 600 mg PO TID #9 tab Lidocaine 5% [Lidoderm] 1 ea TD DAILY #14 patch oxyCODONE [oxyCODONE Immediate Release Tab] 5 mg PO Q6 #12 tab Polyethylene Glycol 3350 [Miralax] 17 gm PO DAILY #14 packet predniSONE [predniSONE Tab] 20 mg PO DAILY #5 tab - Follow Up Plan Condition: STABLE Disposition: HOME/ ROUTINE Instructions: Lumbar Disc Herniation (GEN), Chronic Pain (DC), Back Pain (GEN) , Fall Prevention (GEN) Additional Instructions: 1. Follow up with PMD DR. Candelario in 3 days. 2. Follow up with pain management DR. Linda or Dr. Rouse in [place]. 3. Avoid constipation. Referrals: Boy Stringer MD [Primary Care Provider] - <Austen Epstein - Last Filed: 10/31/16 14:13> Provider - Provider Date of Admission: 10/28/16 15:53 Attending physician: Austen Epstein MD Primary care physician: Boy Stringer MD Hospital Course - Lab Results Lab Results: Most Recent Lab Values WBC 19.8 10^3/ul (4.5-11.0) H D 10/30/16 07:20 RBC 4.23 10^6/uL (3.5-6.1) 10/30/16 07:20 Hgb 12.6 gm/dL (12.0-16.0) 10/30/16 07:20 Hct 38.6 % (36.0-48.0) 10/30/16 07:20 MCV 91.3 fL (80.0-105.0) 10/30/16 07:20 MCH 29.8 pg (25.0-35.0) 10/30/16 07:20 MCHC 32.6 g/dl (31.0-37.0) 10/30/16 07:20 RDW 13.7 % (11.5-14.5) 10/30/16 07:20 Plt Count 362 10^3/uL (120.0-450.0) 10/30/16 07:20 MPV 9.1 fl (7.0-11.0) 10/30/16 07:20 Gran % 88.9 % (50.0-68.0) H 10/30/16 07:20 Lymph % (Auto) 8.8 % (22.0-35.0) L 10/30/16 07:20 Carlton % (Auto) 2.2 % (1.0-6.0) 10/30/16 07:20 Eos % (Auto) 0.0 % (1.5-5.0) L 10/30/16 07:20 Baso % (Auto) 0.1 % (0.0-3.0) 10/30/16 07:20 Gran # 17.62 (1.4-6.5) H 10/30/16 07:20 Lymph # 1.8 (1.2-3.4) 10/30/16 07:20 Carlton # 0.4 (0.1-0.6) 10/30/16 07:20 Eos # 0.0 (0.0-0.7) 10/30/16 07:20 Baso # 0.01 K/mm3 (0.0-2.0) 10/30/16 07:20 PT 11.6 Seconds (9.9-11.8) 10/27/16 15:12 INR 1.07 (0.93-1.08) 10/27/16 15:12 APTT 28.9 Seconds (23.7-30.8) 10/27/16 15:12 Sodium 138 mmol/L (132-148) 10/30/16 07:20 Potassium 4.5 mmol/L (3.6-5.0) 10/30/16 07:20 Chloride 104 mmol/L (98-107) 10/30/16 07:20 Carbon Dioxide 24 mmol/L (21-33) 10/30/16 07:20 Anion Gap 15 (10-20) 10/30/16 07:20 BUN 15 mg/dL (7-21) 10/30/16 07:20 Creatinine 0.5 mg/dL (0.5-1.4) 10/30/16 07:20 Est GFR ( Amer) > 60 10/30/16 07:20 Est GFR (Non-Af Amer) > 60 10/30/16 07:20 Random Glucose 150 mg/dL (70-110) H 10/30/16 07:20 Calcium 9.3 mg/dL (8.4-10.5) 10/30/16 07:20 Total Bilirubin 0.4 mg/dL (0.2-1.3) 10/30/16 07:20 AST 40 U/L (15-39) H 10/30/16 07:20 ALT 67 U/L (7-56) H 10/30/16 07:20 Alkaline Phosphatase 80 U/L (38-133) 10/30/16 07:20 Total Protein 7.9 g/dL (5.8-8.3) 10/30/16 07:20 Albumin 3.9 g/dL (3.0-4.8) 10/30/16 07:20 Globulin 3.9 gm/dL 10/30/16 07:20 Albumin/Globulin Ratio 1.0 (1.1-1.8) L 10/30/16 07:20 Urine Color Straw (YELLOW) 10/27/16 15:12 Urine Appearance Clear (CLEAR) 10/27/16 15:12 Urine pH 6.0 (4.7-8.0) 10/27/16 15:12 Ur Specific [place] <= 1.005 (1.005-1.035) 10/27/16 15:12 Urine Protein Negative mg/dL (<30 mg/dL) 10/27/16 15:12 Urine Glucose (UA) Negative mg/dL (NEGATIVE) 10/27/16 15:12 Urine Ketones Negative mg/dL (NEGATIVE) 10/27/16 15:12 Urine Blood Trace-intact (NEGATIVE) H 10/27/16 15:12 Urine Nitrate Negative (NEGATIVE) 10/27/16 15:12 Urine Bilirubin Negative (NEGATIVE) 10/27/16 15:12 Urine Urobilinogen 0.2 E.U./dL (<1 E.U./dL) 10/27/16 15:12 Ur Leukocyte Esterase Negative Allan/uL (NEGATIVE) 10/27/16 15:12 Urine RBC 0 - 2 /hpf (0-2) 10/27/16 15:12 Urine WBC Negative /hpf (0-6) 10/27/16 15:12 Ur Epithelial Cells 0 - 2 /hpf (0-5) 10/27/16 15:12 Urine Bacteria Neg (NEG) 10/27/16 15:12 Attending/Attestation - Attestation I have personally seen and examined this patient.: Yes I have fully participated in the care of the patient.: Yes I have reviewed all pertinent clinical information, including history, physical exam and plan: Yes Notes (Text): 10/31/16 14:12 attending note; Patient seen and examined with resident. patient is a 41-year-old female with a history of asthma is admitted with significant back pain after lifting heavy object. CT showed L5-S1 disc herniation. treated with Steroids, IV Toradol and Flexeril. PT evaluation appreciated. Patient will follow-up Dr. Linda pain management next week for possible epidural injections. Patient used to get epidural injections from Dr. Rouse in the past. follow-up with PMD Dr. stringer upon discharge. diagnosis; Lumbar disc herniation Back pain
== END 2016-10-30 15:20 | disposition home or self-care (01) | DRG 243 ==
LOC: ED 13:09 → ERH 17:20 → 5RSO 18:53 → OBSVTOIN 10-28 15:53 → 5RSO 10-29 22:23
PROVIDERS: ADMIT Internal Medicine; ATTEND Internal Medicine
DX: M51.27 Other intervertebral disc displacement, lumbosacral region (principal); F40.240 Claustrophobia; M51.37 Other intervertebral disc degeneration, lumbosacral region; M51.26 Other intervertebral disc displacement, lumbar region; M48.07 Spinal stenosis, lumbosacral region; J45.909 Unspecified asthma, uncomplicated; Z88.6 Allergy status to analgesic agent